=== PATIENT | female | born 1990 | race African-American/Black ===

== ENCOUNTER 2019-03-25 14:19 | Emergency (ER) | payer OTHER ==
[~2019-03-25] VITALS: Ht 170.2 cm; Wt 83.2 kg
[2019-03-25 14:28] VITALS: BP 138/71; Ht 170.2 cm; Wt 83.2 kg
[2019-03-25] MEDS ORDERED: ALBUTEROL SULF8.5 GM INH (14:29)
== END 2019-03-25 15:48 | disposition left against medical advice (07) ==
LOC: D.ER 14:19
DX: R07.9 Chest pain, unspecified (principal)

== ENCOUNTER 2020-06-26 16:41 | Emergency (ER) | payer OTHER ==
[~2020-06-26] VITALS: Ht 170.2 cm; Wt 98.6 kg
[~2020-06-26 16:41] MED LIST: ALBUTEROL SULF8.5 GM INH
[2020-06-26 16:51] VITALS: BP 144/74; Ht 170.2 cm; Wt 98.6 kg
[2020-06-26 17:15] LABS: BILIRUBIN NEGATIVE (NEGATIVE); KETONE NEGATIVE (NEGATIVE); NITRITE NEGATIVE (NEGATIVE); UROBILINOGEN NORMAL mg/dL (< 2)
[2020-06-26 17:27] LABS: BASOPHILS 0.2 % (0-2); EOSINOPHILS 3.4 % (0-7); HEMATOCRIT 30.9 % (36.0-48.0); HEMOGLOBIN 10.5 g/dL (12-16); IMMATURE GRANULOCYTES 0.4 % (0-5); LYMPHOCYTE ABS# 1.72 10x3/uL (1.18-3.74); LYMPHOCYTES 15.1 % (15-50); MCH 29.6 pg (26.0-34.0); MEAN PLATELET VOLUME 9.2 fL (7.4-10.4); MONOCYTES 6.2 % (2-11); NEUTROPHIL ABS# 8.52 10x3/uL (1.56-6.13); NEUTROPHILS 74.7 % (40-80); PLATELET COUNT 245 10x3/uL (130-400); RBC 3.55 10x6/uL (4.00-5.40); RDW 12.5 % (11.5-14.5); WBC 11.4 10x3/uL (4.8-10.8)
[2020-06-26 17:38] LABS: CALC OSMOLALITY 266 mosm/kg (275-300); CALCIUM 9.2 mg/dL (8.5-10.1); CARBON DIOXIDE 27.3 mmol/L (21.0-32.0); CHLORIDE - SERUM 100 mmol/L (98-107); CREATININE - SERUM 0.6 mg/dL (0.6-1.3); GLUCOSE 88 mg/dL (74-106); POTASSIUM - SERUM 3.3 mmol/L (3.5-5.1); SODIUM 135 mmol/L (136-145); UREA NITROGEN 7 mg/dL (7-18); eGFR NON AFRICAN AMERICAN > 90 mL/min (90-120)
[2020-06-26 18:02] LABS: ALBUMIN 2.9 g/dL (3.4-5.0); ALKALINE PHOSPHATASE 65 U/L (30-120); ALT (SGPT) 19 U/L (10-68); HCG - QUANTITATIVE (MATERNAL) 6758 mIU/mL; MAGNESIUM - SERUM 1.7 mg/dL (1.8-2.4); PROTEIN - SERUM 6.8 g/dL (6.4-8.2)
[2020-06-26 18:06] LABS: BILIRUBIN - TOTAL 0.06 mg/dL (0.2-1.3)
== END 2020-06-26 18:55 | disposition home or self-care (01) ==
LOC: D.ER 16:41
PROVIDERS: Family Medicine
DX: O26.892 Other specified pregnancy related conditions, second trimester (principal); Z3A.18 18 weeks gestation of pregnancy; R10.9 Unspecified abdominal pain

== ENCOUNTER 2020-08-13 10:48 | Outpatient (CLI) | payer OTHER ==
[~2020-08-13] VITALS: Ht 170.2 cm; Wt 107.7 kg
[2020-08-13 10:55] VITALS: BP 137/72; Ht 170.2 cm; Wt 107.7 kg
--- NOTE | 2020-08-13 11:00 | NUR ---
FHR 160'S VIA DOPPLER. PT STATES + MOVEMENT.
[2020-08-13 11:45] LABS: BILIRUBIN NEGATIVE (NEGATIVE); KETONE NEGATIVE (NEGATIVE); NITRITE NEGATIVE (NEGATIVE); UROBILINOGEN NORMAL mg/dL (< 2)
[2020-08-13 11:48] LABS: BACTERIA MANY HPF (NONE SEEN); SQUAMOUS EPITHELIAL 0-5 HPF (0-4); WHITE CELLS - URINE 0-5 HPF (0-4)
[2020-08-13 11:52] LABS: BASOPHILS 0.2 % (0-2); EOSINOPHILS 4.7 % (0-7); HEMATOCRIT 33.7 % (36.0-48.0); HEMOGLOBIN 11.4 g/dL (12-16); IMMATURE GRANULOCYTES 0.5 % (0-5); LYMPHOCYTE ABS# 1.75 10x3/uL (1.18-3.74); LYMPHOCYTES 14.9 % (15-50); MCH 29.1 pg (26.0-34.0); MCHC 33.8 g/dL (31.0-37.0); MEAN PLATELET VOLUME 9.4 fL (7.4-10.4); MONOCYTES 5.2 % (2-11); NEUTROPHIL ABS# 8.77 10x3/uL (1.56-6.13); NEUTROPHILS 74.5 % (40-80); PLATELET COUNT 281 10x3/uL (130-400); RBC 3.92 10x6/uL (4.00-5.40); RDW 13.1 % (11.5-14.5); WBC 11.8 10x3/uL (4.8-10.8)
[2020-08-13 11:58] LABS: UDS - AMPHET NEGATIVE QUAL (NEGATIVE); UDS - BARB NEGATIVE QUAL (NEGATIVE); UDS - BENZO NEGATIVE QUAL (NEGATIVE); UDS - COCAINE NEGATIVE QUAL (NEGATIVE); UDS - OPIATE NEGATIVE QUAL (NEGATIVE); UDS - PCP NEGATIVE QUAL (NEGATIVE); UDS - THC POSITIVE QUAL (NEGATIVE)
[2020-08-13 12:01] LABS: CALC OSMOLALITY 271 mosm/kg (275-300); CALCIUM 8.9 mg/dL (8.5-10.1); CARBON DIOXIDE 27.2 mmol/L (21.0-32.0); CHLORIDE - SERUM 102 mmol/L (98-107); CREATININE - SERUM 0.5 mg/dL (0.6-1.3); GLUCOSE 90 mg/dL (74-106); POTASSIUM - SERUM 3.7 mmol/L (3.5-5.1); SODIUM 137 mmol/L (136-145); UREA NITROGEN 7 mg/dL (7-18); eGFR NON AFRICAN AMERICAN > 90 mL/min (90-120)
[2020-08-13 12:06] LABS: ALBUMIN 2.9 g/dL (3.4-5.0); ALKALINE PHOSPHATASE 80 U/L (30-120); ALT (SGPT) 20 U/L (10-68); PROTEIN - SERUM 7.2 g/dL (6.4-8.2)
[2020-08-13 12:09] LABS: BILIRUBIN - TOTAL 0.08 mg/dL (0.2-1.3)
[2020-08-13] MEDS ORDERED: ZOFRAN4 MG PO (12:56)
== END 2020-08-13 14:10 | disposition home or self-care (01) ==
LOC: D.LDO 10:48 → D.ER 10:48 → EDSTATUS 12:48 → D.LDO 14:10
PROVIDERS: Family Medicine; ATTEND Obstetrics & Gynecology
DX: O26.899 Other specified pregnancy related conditions, unspecified trimester (principal)

== ENCOUNTER 2020-10-02 18:30 | Outpatient (CLI) | payer OTHER, MEDICAID ==
[2020-08-13 10:55] VITALS: BMI 37.2
[~2020-10-02 18:30] MED LIST changes: +ZOFRAN4 MG PO
[2020-10-02 20:06] LABS: BASOPHILS 0.5 % (0-2); EOSINOPHILS 3.4 % (0-7); HEMATOCRIT 33.2 % (36.0-48.0); HEMOGLOBIN 11.1 g/dL (12-16); LYMPHOCYTES 16.8 % (15-50); MCH 28.4 pg (26.0-34.0); MCHC 33.5 g/dL (31.0-37.0); MCV 84.9 fL (80.0-100.0); MEAN PLATELET VOLUME 7.4 fL (7.4-10.4); MONOCYTES 6.1 % (2-11); NEUTROPHILS 73.2 % (40-80); PLATELET COUNT 307 10x3/uL (130-400); RBC 3.91 10x6/uL (4.00-5.40); RDW 14.1 % (11.5-14.5); WBC 9.5 10x3/uL (4.8-10.8)
[2020-10-02 20:13] LABS: BACTERIA FEW HPF (<MOD); BILIRUBIN NEGATIVE (NEGATIVE); KETONE NEGATIVE mg/dL (< 1+); NITRITE NEGATIVE (NEGATIVE); PH 6.5 (5.0-8.0); SQUAMOUS EPITHELIAL 2 HPF (0-4); UROBILINOGEN NORMAL mg/dL (< 2); WHITE CELLS - URINE 4 HPF (0-4)
[2020-10-02 20:24] LABS: ALBUMIN 2.6 g/dL (3.4-5.0); ALKALINE PHOSPHATASE 81 U/L (30-120); ALT (SGPT) 21 U/L (10-68); BILIRUBIN - TOTAL 0.15 mg/dL (0.2-1.3); CALC OSMOLALITY 272 mosm/kg (275-300); CARBON DIOXIDE 25.4 mmol/L (21.0-32.0); CHLORIDE - SERUM 102 mmol/L (98-107); CREATININE - SERUM 0.7 mg/dL (0.6-1.3); GLUCOSE 98 mg/dL (74-106); POTASSIUM - SERUM 3.7 mmol/L (3.5-5.1); SODIUM 137 mmol/L (136-145); UREA NITROGEN 10 mg/dL (7-18); URIC ACID 4.5 mg/dL (2.6-7.2); eGFR NON AFRICAN AMERICAN > 90 mL/min (90-120)
[2020-10-02 21:45] LABS: CREATININE - URINE 80.6 mg/dL (30-125); PRO/CRE RATIO URINE 0.5 mg/g; PROTEIN - URINE 42.7 mg/dL (0.0-11.9)
[2020-10-02] MEDS ORDERED: VALTREX500 MG PO (23:19)
[2020-10-04 08:32] LABS: PROTEIN - URINE 20.1 mg/dL (0.0-11.9)
== END 2020-10-02 21:40 | disposition home or self-care (01) ==
LOC: D.LDO 18:30
PROVIDERS: ATTEND Obstetrics & Gynecology
DX: O46.90 Antepartum hemorrhage, unspecified, unspecified trimester (principal)

== ENCOUNTER 2020-10-07 11:45 | Outpatient (CLI) | payer OTHER, MEDICAID ==
[2020-08-13 10:55] VITALS: BMI 37.2
[~2020-10-07 11:45] MED LIST changes: +VALTREX500 MG PO
== END 2020-10-07 12:30 | disposition home or self-care (01) ==
LOC: D.LDO 11:45
PROVIDERS: ATTEND Student in an Organized Health Care Education/Training Program
DX: O14.00 Mild to moderate pre-eclampsia, unspecified trimester (principal)

== ENCOUNTER 2020-10-11 10:35 | Outpatient (CLI) | payer OTHER, MEDICAID ==
[2020-08-13 10:55] VITALS: BMI 37.2
== END 2020-10-11 12:05 | disposition home or self-care (01) ==
LOC: D.LDO 10:35
PROVIDERS: ATTEND Student in an Organized Health Care Education/Training Program
DX: O14.00 Mild to moderate pre-eclampsia, unspecified trimester (principal)

== ENCOUNTER 2020-10-14 10:00 | Outpatient (CLI) | payer MEDICAID ==
[2020-08-13 10:55] VITALS: BMI 37.2
== END 2020-10-14 11:51 | disposition home or self-care (01) ==
LOC: D.LDO 10:00
PROVIDERS: ATTEND Student in an Organized Health Care Education/Training Program
DX: O14.90 Unspecified pre-eclampsia, unspecified trimester (principal)